=== PATIENT | female | born 1990 | race Caucasian/White ===

== ENCOUNTER 2018-02-14 11:06 | Inpatient (IN) ==
[2018-02-14] MEDS ORDERED: ONDANSETRON 4 MG/2 ML VIAL IV ONE (11:28)
[2018-02-14] MEDS ORDERED: LACTATED RINGERS 1,000 ML IV ONE (11:28)
--- NOTE | 2018-02-14 11:31 | Emergency Department Note ---
Abdominal Pain HPI - General Chief Complaint: Abdominal Pain Stated Complaint: R upper quad pain, known gall-stones Time Seen by Provider: 02/14/18 11:20 Source: patient Mode of arrival: ambulatory - History of Present Illness HPI Narrative: This patient has known gallstones and has been having gallbladder pain for several months. She had an ultrasound in [place] a month ago but could not get the results. She said she vomited 14 times yesterday and feels nauseated today with right upper quadrant pain persisting. - Related Data Home Medications Medication Instructions Recorded Confirmed No Known Home Meds [No Known Home 02/14/18 02/14/18 Meds] Allergies Allergy/AdvReac Type Severity Reaction Status Date / Time metformin Allergy Anaphylaxis Verified 02/14/18 11:11 Review of Systems All systems ED: reviewed and negative except as stated. Abdominal Pain PMH - Past Medical History Medical history: Reports: no medical history - Social History Smoking status: Never smoker Physical Exam Limitations: no limitations General appearance: alert Head: atraumatic Eye: Present: normal appearance ENT: normal exam Neck: Present: normal inspection Chest: Present: normal inspection Respiratory: Present: normal lung sounds bilaterally Cardiovascular: Present: regular rate, normal rhythm, normal heart sounds Abdominal: Present: soft, tenderness. Absent: distention, guarding, rebound, rigidity Abdominal tenderness: Present: RUQ Neurological: Present: alert Psychiatric: Present: normal affect, normal mood Skin: Present: warm, dry, intact Course Vital Signs Temperature 97.9 F 02/14/18 11:07 Pulse Rate 93 H 02/14/18 11:07 Respiratory Rate 16 02/14/18 11:07 Blood Pressure 134/88 02/14/18 11:07 Pulse Oximetry (%) 98 02/14/18 11:07 Temperature 97.9 F 02/14/18 11:07 Pulse Rate 73 02/14/18 12:46 Respiratory Rate 16 02/14/18 11:07 Blood Pressure 105/69 02/14/18 12:46 Pulse Oximetry (%) 97 02/14/18 12:46 Abdominal Pain - [facility] Narrative Medical decision making narrative: This patient has gallstones with a slightly dilated common bile duct. Lab work actually looks good though. Dr. Saeed a surgeon will come in and see her for admission. - Lab Data Lab results reviewed: Yes I reviewed the patient's lab results. Result diagrams: 02/14/18 11:43 02/14/18 11:43 Lab Results 02/14/18 02/14/18 02/14/18 Range/Units 11:26 11:43 11:43 WBC 7.3 (4.5-11.0) K/mcL RBC 4.42 (4.00-5.20) M/mcL Hgb 12.8 (12.0-15.0) g/dL Hct 37.9 (36.0-48.0) % MCV 85.8 (80.0-100.0) fL MCH 28.9 (26.0-34.0) pg MCHC 33.7 (31.0-36.0) g/dL RDW 13.0 (11.5-14.5) % Plt Count 231 (140-440) K/mcL MPV 9.3 (7.4-10.4) fL Gran % 61.4 (38.0-78.0) % Lymph % (Auto) 32.0 (15.5-49.0) % Vernon % (Auto) 5.3 (1.0-12.0) % Eos % (Auto) 0.8 (0.0-7.0) % Baso % (Auto) 0.5 (0.0-2.0) % Gran # 4.5 (1.8-8.0) K/mcL Lymph # (Auto) 2.3 (1.5-4.8) K/mcL Vernon # (Auto) 0.4 (0.1-0.9) K/mcL Eos # (Auto) 0.1 (0.0-0.7) K/mcL Baso # (Auto) 0 (0.0-0.3) K/mcL Sodium 139 (133-145) mmol/L Potassium 3.9 (3.3-5.1) mmol/L Chloride 103 (96-108) mmol/L Carbon Dioxide 24 (22-30) mmol/L Anion Gap 12.0 (8-16) BUN 13 (6-20) mg/dl Creatinine 0.7 (0.6-1.1) mg/dl GFR Calculation 117 Glucose 188 H (70-105) mg/dL Calcium 9.1 (8.6-10.4) mg/dl Total Bilirubin 0.5 (0.0-1.0) mg/dL AST 15 (0-37) U/l ALT 19 (0-40) U/l Alkaline Phosphatase 64 (39-117) U/L Total Protein 7.3 (5.9-8.4) gm/dL Albumin 3.5 (3.2-5.2) gm/dL Globulin 3.8 H (2.2-3.7) gm/dL Albumin/Globulin Ratio 0.9 L (1.0-2.3) Lipase 25 (7-60) U/L Urine Color Yellow Urine Appearance Clear Urine pH 7.0 (5.0-9.0) Ur Specific Preston 1.021 (1.000-1.035) Urine Protein Neg (NEG) mg/dL Urine Glucose (UA) Negative (NEG) mg/dL Urine Ketones Neg (NEG) mg/dL Urine Occult Blood Neg (<0.03) mg/dL Urine Nitrate Neg (NEG) Urine Bilirubin Neg (NEG) mg/dL Urine Urobilinogen Neg (NEG) mg/dL Ur Leukocyte Esterase 25 A (NEG) /uL Urine RBC 1 (0-1) /hpf Urine WBC 3 (0-4) /hpf Ur Squamous Epith Cells 4 (0-4) /hpf Urine Bacteria 0 (0) /hpf Urine Mucus Few (0) /hpf Ur Culture Indicated? No - Radiology Data Radiology results reviewed: Yes I reviewed the patient's radiology results. Disposition Pt seen by REVIEW APPRAISER/PA only: No Clinical Impression: Cholecystitis Disposition: Xfer As Inpt ([facility]) Condition: Good Referrals: No,PCP [Primary Care Provider] - Time of Disposition: 13:14
[2018-02-14 12:45] LABS: Basophils # (Auto) 0 K/mcL (0.0-0.3); Basophils % (Auto) 0.5 % (0.0-2.0); Eosinophils # (Auto) 0.1 K/mcL (0.0-0.7); Eosinophils % (Auto) 0.8 % (0.0-7.0); Granulocytes % (Auto) 61.4 % (38.0-78.0); Lymphocytes # (Auto) 2.3 K/mcL (1.5-4.8); Mean Cell Volume 85.8 fL (80.0-100.0); Mean Corpuscular HGB Conc 33.7 g/dL (31.0-36.0); Mean Corpuscular Hemoglobin 28.9 pg (26.0-34.0); Monocytes # (Auto) 0.4 K/mcL (0.1-0.9); Monocytes % (Auto) 5.3 % (1.0-12.0); Platelet Count 231 K/mcL (140-440); RBC 4.42 M/mcL (4.00-5.20)
[2018-02-14 12:49] LABS: Appearance,Urine CLEAR; Bacteria,Urine 0 /hpf (0); Bilirubin,Urine NEG (NEG); Color,Urine YELLOW; Glucose,Urine (UA) NEGATIVE (NEG); Leukocyte Esterase,Urine 25 /uL (NEG); Mucus,Urine FEW /hpf (0); Protein,Urine NEG (NEG); Specific Gravity,Urine 1.021 (1.000-1.035); Urine Blood NEG mg/dL (<0.03); Urine RBC 1 /hpf (0-1); Urine Squamous Epithelial Cell 4 /hpf (0-4); Urine WBC 3 /hpf (0-4); Urobilinogen,Urine NEG (NEG)
[2018-02-14 13:00] LABS: ALT/SGPT 19 U/l (0-40); Albumin 3.5 gm/dL (3.2-5.2); Albumin/Globulin Ratio 0.9 (1.0-2.3); Alkaline Phosphatase 64 U/L (39-117); Blood Urea Nitrogen 13 mg/dl (6-20); Lipase 25 U/L (7-60)
[2018-02-14] MEDS ORDERED: LACTATED RINGERS 1,000 ML IV SCH (16:18)
[2018-02-14] MEDS ORDERED: ONDANSETRON 4 MG/2 ML VIAL IV PRN (16:18)
--- NOTE | 2018-02-14 17:51 | Ultrasound Report ---
CLINICAL INFORMATION: Right upper quadrant pain COMPARISON: None. FINDINGS: There are multiple stones within the gallbladder fundus and the gallbladder is mildly enlarged. Gallbladder wall is normal thickness - 2 mm and there is no focal tenderness. Common bile duct is mildly dilated - 9 mm. The distal CBD is not visualized - no ductal stone identified. The liver is hyperechoic and slightly enlarged vertical dimension 16 cm mid clavicular line. No focal hepatic lesions. Pancreas is normal. No free fluid IMPRESSION: 1. Cholelithiasis with enlargement of the gallbladder which could indicate early cholecystitis 2. 3. Mild dilatation of common bile duct potentially indicating choledocholithiasis. The distal CBD is not visualized. 4. Hyperechoic mildly enlarged liver compatible with fatty change Interpreted and Authenticated by: Joseluis Hill 02/14/18
[2018-02-14] MEDS ORDERED: ONDANSETRON 4 MG/2 ML VIAL ONE (18:46)
[2018-02-14] MEDS: ACETAMINOPHEN 1,000 MG/100 ML BOTTLE IV PRN (18:47)
[2018-02-14] MEDS: 0.9 % SODIUM CHLORIDE 1,000 ML IV SCH (19:00)
--- NOTE | 2018-02-14 19:10 | Consultation ---
DATE OF CONSULTATION: 02/14/2018 CHIEF COMPLAINT: Ms. Rodriguez is seen in consultation at the request of Dr. Longo in the ER for upper abdominal pain and cholelithiasis. HISTORY OF PRESENT ILLNESS: Ms. Rodriguez is a 27-year-old woman, who presents to emergency department with complaints of upper abdominal pain that has been ongoing for approximately 3 years. She states that her first episode was 3 years ago at which time she was evaluated and was told she had stones in her gallbladder. That pain resolved, and the subsequent year, she had several episodes of recurrent upper abdominal pain. Now, she reports that she has daily attacks of pain for approximately 3 months with a baseline 8 in her upper abdomen. Her pain is not necessarily associated with eating and can come out of the blue when she is doing nothing. She describes the pain as a sharp shooting pain in her right upper quadrant that wraps into her back. Her last meal was earlier today at which time she ate half a breakfast burrito on the way to the hospital. Her pain was not severe today, though yesterday she did have severe pain with episodes of nausea and vomiting. Today, she came into the hospital because of the recurrent and persistent attacks and at the urging of her family to get further evaluated. PAST MEDICAL HISTORY: Significant for polycystic ovary disease, history of heavy bleeding with irregular menses with a blood transfusion 2 years ago. She reports no prior abdominal surgery. Denies any history of asthma, diabetes mellitus, or hypertension. REVIEW OF SYSTEMS: CONSTITUTIONAL: Denies fevers or chills. CARDIOVASCULAR: Denies chest pain or pressure. PULMONARY: No new cough or production of sputum. HEMATOLOGIC: History of blood transfusion due to anemia from heavy bleeding from her menses 2 years ago. No transfusion since. Denies history of DVT or PE. FAMILY HISTORY: No family history of myocardial infarction prior to age 50. She reports no family history of anesthetic reactions. There is a family history of breast cancer in her paternal grandmother. ALLERGIES: SHE REPORTS AN ALLERGY TO METFORMIN. MEDICATIONS: The patient reports no home medications. SOCIAL HISTORY: Denies tobacco use. Reports occasional alcohol use approximately 1 drink every 2 weeks. Denies any recreational drug use. PHYSICAL EXAMINATION: VITAL SIGNS: Blood pressure 116/77, pulse 90-86, O2 saturations 97% on room air. GENERAL APPEARANCE: Ms. Rodriguez is a well-developed, obese woman who appears tired and in pain. HEENT: Head is normocephalic. Sclerae are white. CHEST: Breath sounds are clear bilaterally. No rales, wheezes, heard. No use of accessory respiratory musculature. CARDIOVASCULAR: Reveals regular rhythm and rate. ABDOMEN: Obese, soft. There is tenderness on palpation of the right upper abdomen just below the rib cage. No masses palpated though this can be difficult to fully appreciate due to body habitus. No tenderness noted on palpation of other areas of the abdomen. EXTREMITIES: Warm with DP pulses palpable bilaterally. No pedal edema. LABS AND STUDIES: CBC drawn in the Emergency Department shows a normal white blood cell count of 7.3 with no left shift, hemoglobin is 12.8, hematocrit 37.9, platelets 231. Serum chemistry shows sodium of 139, potassium 3.9, chloride 103, CO2 of 24, BUN 13, creatinine 0.7, glucose 188, total bilirubin 0.5, AST 15, ALT 19, alkaline phosphatase 64, albumin 3.5, lipase is normal at 25. Urinalysis is negative for nitrites. There is a small amount of leukocyte esterase, no bacteria seen. Culture report not indicated. Urine hCG was negative. The patient underwent ultrasound imaging in the Emergency Department which shows a distended gallbladder with cholelithiasis. There is no thickening of the gallbladder wall. The common bile duct was noted to be dilated at 8.4 mm distally. Goldberg sign was absent on ultrasound. ASSESSMENT AND PLAN: Chronic calculus cholecystitis. I discussed the findings on imaging with the patient and the nature of this diagnosis using drawings to illustrate the anatomy. Recommendation of cholecystectomy was discussed along with alternative options of continued observation, although it seems the patient has been undergoing the symptoms for quite some time and observation has not resulted in any improvement. We reviewed the risks and benefits of surgery. Risks include, but are not limited to bleeding, infection, injury to the common bile duct, injury to other organs, bile leak, risks of general anesthesia, and possible need for conversion to an open procedure from a laparoscopic one. I also explained to the patient that there was a finding of dilation of the common bile duct in the distal portion. There was no clear evidence of stone. When I spoke with the wheelage clerk and labs did not suggest any obstruction at this time, it is possible, however, that this finding could result in need for further procedures pending perioperative findings. The patient verbalized understanding of her options of management and the risks of surgery and would like to proceed. She will be admitted and hydrated with plans for proceeding with cholecystectomy within the near future. RC:jose manuel Job ID: [id number] Doc ID: [id number] Samantha Saeed MD
[2018-02-14] MEDS: PIPERACILLIN SODIUM/TAZOBACTAM 3.375 GM in DEXTROSE 5% IN WATER 50 ML IV SCH (19:38)
[2018-02-14] MEDS ORDERED: PANTOPRAZOLE 40 MG VIAL IV ONE (19:55)
[2018-02-14] MEDS: PANTOPRAZOLE 40 MG VIAL IV SCH (20:06)
[2018-02-14] MEDS: HYDROmorphone 2 MG/ML VIAL IV PRN (21:11)
[2018-02-15] MEDS: PIPERACILLIN SODIUM/TAZOBACTAM 3.375 GM in DEXTROSE 5% IN WATER 50 ML IV SCH ×5 (01:16→22:13)
[2018-02-15] MEDS: HYDROmorphone 2 MG/ML VIAL IV PRN ×2 (02:04→09:26)
[2018-02-15] MEDS: ACETAMINOPHEN 1,000 MG/100 ML BOTTLE IV PRN (02:08)
[2018-02-15] MEDS: 0.9 % SODIUM CHLORIDE 1,000 ML IV SCH ×3 (04:31→15:45)
[2018-02-15 05:01] LABS: Basophils # (Auto) 0 K/mcL (0.0-0.3); Basophils % (Auto) 0.5 % (0.0-2.0); Eosinophils # (Auto) 0 K/mcL (0.0-0.7); Eosinophils % (Auto) 0.6 % (0.0-7.0); Granulocytes % (Auto) 54.6 % (38.0-78.0); Lymphocytes # (Auto) 2.9 K/mcL (1.5-4.8); Lymphocytes % (Auto) 37.3 % (15.5-49.0); Mean Cell Volume 87.3 fL (80.0-100.0); Mean Corpuscular HGB Conc 33.6 g/dL (31.0-36.0); Mean Corpuscular Hemoglobin 29.3 pg (26.0-34.0); Monocytes # (Auto) 0.5 K/mcL (0.1-0.9); Platelet Count 227 K/mcL (140-440); RBC 4.01 M/mcL (4.00-5.20); Red Cell Distribution Width 12.9 % (11.5-14.5)
[2018-02-15 05:46] LABS: ALT/SGPT 17 U/l (0-40); Albumin 3.3 gm/dL (3.2-5.2); Albumin/Globulin Ratio 1.1 (1.0-2.3); Alkaline Phosphatase 58 U/L (39-117); Bilirubin,Direct < 0.2 mg/dL (0.0-0.3); Blood Urea Nitrogen 10 mg/dl (6-20); Gamma Glutamyl Transpeptidase 38 U/L (5-36); Uric Acid 4.4 mg/dL (2.5-8.0)
[2018-02-15] MEDS: PANTOPRAZOLE 40 MG VIAL IV SCH (07:42)
--- NOTE | 2018-02-15 11:37 | General Surgery Progress Note ---
Subjective Patient reports: still having pain, no flatus, no bowel movement, afebrile Narrative: Note initiated : 02/15/18 at 11:35 am Service Date, if different from initiated Date: [] Patient: Ratna Rodriguez 27 y/o F admitted on 02/14/18 for R Upper Quad Pain, Known GallStones/Cholelithiasis. Chief Complaint: [patient continues to have abdominal pain. She has nausea but has not had vomiting since yesterday. Discussed with her the need to proceed with cholecystectomy and I counseled her concerning the procedure.. It will be done later today.] Objective Temp Pulse Resp BP Pulse Ox 98.3 F 61 18 114/76 95 02/15/18 10:48 02/15/18 04:22 02/15/18 10:48 02/15/18 10:48 02/15/18 10:48 - Additional Data Intake & Output - Last 24 hours: Intake & Output 02/13/18 02/14/18 02/15/18 02/16/18 05:59 05:59 05:59 05:59 Intake Total 1590 / 1590 Output Total 1050 / 1050 Balance 540 / 540 Weight 266 lb - General physical appearance moderate distress, moderate pain, obese - Eyes PERRL, normal ocular movement (Rehabilitation Specialist) - ENT normal pinna ( listed weight weight), normal nares, normal mucosa, no hearing loss, no congestion - Neck no masses ( at L1 and S1), no bruits, trachea midline, no lymphadectomy, no venous distension - Respiratory normal expansion, normal respiratory effort, clear to percussion, clear to auscultation - Cardiovascular Cardiovascular exam: Present: normal rate and rhythm (aaaaaaaaaaaaaaaaaa wire), RRR, +S1, +S2. Absent: JVD, tachycardia - Abdomen tender ( right upper quadrant tenderness with guarding; good active bowel sounds ;) - Rectum normal sphincter tone, no hemorrhoids, no tenderness, no masses, no bleeding - Integumentary no rash, no growths, no abnormal pigmentation - Neurologic normal coordination, normal sensation - Musculoskeletal normal gait, normal posture - Psychiatric oriented to time, oriented to person, oriented to place, speech is normal, memory intact - Labs 02/15/18 04:05 02/15/18 04:05 Diabetes panel 02/14/18 02/15/18 Range/Units 11:43 04:05 Sodium 139 139 (133-145) mmol/L Potassium 3.9 4.3 (3.3-5.1) mmol/L Chloride 103 104 (96-108) mmol/L Carbon Dioxide 24 25 (22-30) mmol/L BUN 13 10 (6-20) mg/dl Creatinine 0.7 0.7 (0.6-1.1) mg/dl Glucose 188 H 120 H (70-105) mg/dL Calcium 9.1 8.5 L (8.6-10.4) mg/dl AST 15 15 (0-37) U/l ALT 19 17 (0-40) U/l Alkaline Phosphatase 64 58 (39-117) U/L Total Protein 7.3 6.4 (5.9-8.4) gm/dL Albumin 3.5 3.3 (3.2-5.2) gm/dL Triglycerides 116 (<150) mg/dl Calcium panel 02/14/18 02/15/18 Range/Units 11:43 04:05 Calcium 9.1 8.5 L (8.6-10.4) mg/dl Phosphorus 5.1 H (2.7-4.5) mg/dL Albumin 3.5 3.3 (3.2-5.2) gm/dL Pituitary panel 02/14/18 02/15/18 Range/Units 11:43 04:05 Sodium 139 139 (133-145) mmol/L Potassium 3.9 4.3 (3.3-5.1) mmol/L Chloride 103 104 (96-108) mmol/L Carbon Dioxide 24 25 (22-30) mmol/L BUN 13 10 (6-20) mg/dl Creatinine 0.7 0.7 (0.6-1.1) mg/dl Glucose 188 H 120 H (70-105) mg/dL Calcium 9.1 8.5 L (8.6-10.4) mg/dl Adrenal panel 02/14/18 02/15/18 Range/Units 11:43 04:05 Sodium 139 139 (133-145) mmol/L Potassium 3.9 4.3 (3.3-5.1) mmol/L Chloride 103 104 (96-108) mmol/L Carbon Dioxide 24 25 (22-30) mmol/L BUN 13 10 (6-20) mg/dl Creatinine 0.7 0.7 (0.6-1.1) mg/dl Glucose 188 H 120 H (70-105) mg/dL Calcium 9.1 8.5 L (8.6-10.4) mg/dl Total Bilirubin 0.5 0.5 (0.0-1.0) mg/dL AST 15 15 (0-37) U/l ALT 19 17 (0-40) U/l Alkaline Phosphatase 64 58 (39-117) U/L Total Protein 7.3 6.4 (5.9-8.4) gm/dL Albumin 3.5 3.3 (3.2-5.2) gm/dL Assessment and Plan (1) Cholelithiasis with acute cholecystitis without biliary obstruction Status: Acute Assessment and plan: Patient counseled for laparoscopic cholecystectomy Current Visit: Yes - Time Spent With Patient Total time spent is greater than 50% in coordination of care (as documented) at patient's floor/unit and/or counseling patient:
[2018-02-15] MEDS ORDERED: LIDOCAINE HCL/PF 100 MG/5 ML SYRINGE IV ONE (12:30)
[2018-02-15] MEDS ORDERED: ROCURONIUM 10 MG/ML ML IV ONE (12:30)
[2018-02-15] MEDS ORDERED: NEOSTIGMINE 1 MG/ML VIAL IV ONE (12:30)
[2018-02-15] MEDS ORDERED: KETAMINE 100 MG/ML ML IV ONE (12:30)
[2018-02-15] MEDS ORDERED: GLYCOPYRROLATE 0.2 MG/ML VIAL IV ONE (12:30)
[2018-02-15] MEDS ORDERED: ONDANSETRON 4 MG/2 ML VIAL IV ONE (12:30)
[2018-02-15] MEDS ORDERED: PROPOFOL 200 MG/20 ML VIAL IV ONE (12:30)
[2018-02-15] MEDS ORDERED: fentaNYL 100 MCG/2 ML VIAL IV ONE (12:30)
[2018-02-15] MEDS ORDERED: MIDAZOLAM 2 MG/2 ML VIAL IV ONE (12:30)
[2018-02-15] MEDS ORDERED: MEPERIDINE 25 MG/ML SYRINGE IV PRN (13:18)
[2018-02-15] MEDS ORDERED: KETOROLAC 30 MG/ML VIAL IV PRN (13:18)
[2018-02-15] MEDS ORDERED: PROMETHAZINE 25 MG/ML VIAL IM PRN (13:18)
[2018-02-15] MEDS ORDERED: PROMETHAZINE 25 MG/ML VIAL IV PRN (13:18)
[2018-02-15] MEDS ORDERED: IPRATROPIUM/ALBUTEROL 3 ML AMPUL.NEB NEB PRN (13:18)
[2018-02-15] MEDS ORDERED: MEPERIDINE 50 MG/ML INJECTION IM PRN (13:18)
--- NOTE | 2018-02-15 13:56 | Brief Operative Note ---
Date of procedure: 02/15/18 Pre-op diagnosis: acute cholecystitis with cholelithiasis Post-op diagnosis: other (acute cholecystitis with cholelithiasis) Procedure: laparoscopic cholecystectomy Grafts/Implants: No (shade drain x1) Anesthesia: GETA Findings: acute severe inflammation of gallbladder with cystic duct obstruction Complications: none Surgeon: Belkis Kimball Specimens Removed/Pathology: other (gallbladder) Condition: stable Disposition: PACU
[2018-02-15] MEDS: fentaNYL 100 MCG/2 ML VIAL IV PRN ×4 (14:05→14:17)
--- NOTE | 2018-02-15 14:37 | Operative Note ---
DATE OF OPERATION: 02/15/2018 PREOPERATIVE DIAGNOSIS: Acute cholecystitis with cholelithiasis. POSTOPERATIVE DIAGNOSIS: Acute cholecystitis with cholelithiasis. PROCEDURE: Laparoscopic cholecystectomy. SURGEON: Belkis Kimball M.D. FINDINGS: Acute severe inflammation of the gallbladder with cystic duct obstruction and clear bile. DESCRIPTION OF PROCEDURE: Under general anesthesia, the patient's abdomen was prepped and draped in a sterile field. A time-out procedure was carried out as per protocol. Supraumbilical incision was made and Veress needle was inserted uneventfully. Abdomen was insufflated with 3 liters of CO2. A 12 mm port was placed. Laparoscope was placed. The gallbladder was visualized. It was acutely inflamed. Under videoscopic guidance, a 12 mm port and two 5 mm ports were placed in the right subcostal area. The gallbladder was decompressed with a Weck needle. The gallbladder was grasped and positioned. Cystic duct and cystic artery branches were dissected. The cystic duct was dissected followed back to the gallbladder where it was clipped with five clips and divided. Cystic artery branches were dissected onto the wall of the gallbladder, clipped with 4 clips each and divided. The gallbladder was then from the infrahepatic bed using electrocautery. There was a modest amount of bleeding. A 7 Faroese Zander drain was placed in the subhepatic space and brought out through the most lateral incision. More irrigation was carried out. CO2 was allowed to escape from the abdomen and the ports were removed. Fascia at the umbilicus was closed with interrupted 0 Vicryl. Skin incisions were closed with christine. The patient tolerated the procedure well. Dressings were placed. The drain was secured with 2-0 nylon. The patient was awakened from anesthesia uneventfully, transferred to a bed and taken to the postanesthetic care unit in stable, satisfactory condition. LCS:ashish Job ID: [id number] Doc ID: [id number] Belkis Kimball M.D.
[2018-02-15] MEDS ORDERED: HYDROmorphone 2 MG/ML VIAL IV PRN (14:46)
[2018-02-15] MEDS ORDERED: ACETAMINOPHEN 1,000 MG/100 ML BOTTLE IV PRN (14:46)
[2018-02-15] MEDS ORDERED: ONDANSETRON 4 MG/2 ML VIAL IV PRN (14:46)
[2018-02-16] MEDS: 0.9 % SODIUM CHLORIDE 1,000 ML IV SCH ×2 (03:01→11:18)
[2018-02-16 05:42] LABS: Basophils # (Auto) 0 K/mcL (0.0-0.3); Basophils % (Auto) 0.1 % (0.0-2.0); Eosinophils # (Auto) 0 K/mcL (0.0-0.7); Eosinophils % (Auto) 0 % (0.0-7.0); Granulocytes % (Auto) 83.4 % (38.0-78.0); Lymphocytes # (Auto) 1.3 K/mcL (1.5-4.8); Lymphocytes % (Auto) 12.3 % (15.5-49.0); Mean Cell Volume 86.7 fL (80.0-100.0); Mean Corpuscular HGB Conc 33.7 g/dL (31.0-36.0); Mean Corpuscular Hemoglobin 29.2 pg (26.0-34.0); Monocytes # (Auto) 0.4 K/mcL (0.1-0.9); Monocytes % (Auto) 4.2 % (1.0-12.0); Platelet Count 244 K/mcL (140-440); RBC 4.04 M/mcL (4.00-5.20); Red Cell Distribution Width 12.8 % (11.5-14.5)
[2018-02-16] MEDS: PIPERACILLIN SODIUM/TAZOBACTAM 3.375 GM in DEXTROSE 5% IN WATER 50 ML IV SCH (05:51)
[2018-02-16 05:52] LABS: ALT/SGPT 29 U/l (0-40); Albumin 3.3 gm/dL (3.2-5.2); Albumin/Globulin Ratio 0.9 (1.0-2.3); Alkaline Phosphatase 55 U/L (39-117); Bilirubin,Direct < 0.2 mg/dL (0.0-0.3); Blood Urea Nitrogen 7 mg/dl (6-20); Gamma Glutamyl Transpeptidase 53 U/L (5-36); Uric Acid 3.9 mg/dL (2.5-8.0)
[2018-02-16] MEDS ORDERED: PANTOPRAZOLE 40 MG VIAL IV SCH (07:30)
--- NOTE | 2018-02-16 11:14 | Discharge Summary ---
Providers - Providers Patient information: Note initiated : 02/16/18 at 11:12 am Service Date, if different from initiated Date: [] Patient: Ratna Rodriguez 27 y/o F admitted on 02/14/18 for R Upper Quad Pain, Known GallStones/Cholelithiasis. Chief Complaint: [] Date of admission: 02/14/18 Discharge date: 02/16/18 Attending physician: Belkis Kimball Hospitalization Hospital course: 27-year-old female admitted with recurrent abdominal pain with nausea and vomiting. She was noted to have cholecystitis and cholelithiasis. Patient underwent laparoscopic cholecystectomy on February 08. Patient has done well. Her enzymes are normal. She is tolerating regular diet. Patient is stable for discharge home. Discharge diagnosis: cholelithiasis with cholecystitis Reason for admission: gallstone disease Procedures: Laparoscopic cholecystectomy Complications: None Exam Temp Pulse Resp BP Pulse Ox 97.1 F 79 22 101/64 96 02/16/18 07:33 02/16/18 07:33 02/16/18 07:33 02/16/18 07:33 02/16/18 07:33 - General physical appearance well developed, well nourished, no distress - Eyes PERRL, normal ocular movement - ENT normal pinna, normal nares, normal mucosa, no hearing loss, no congestion - Head Head exam IM: Present: atraumatic, normocephalic - Neck no masses, no bruits, trachea midline, no lymphadectomy, no venous distension - Cardiovascular Cardiovascular exam IM: Present: normal rate and rhythm - Respiratory normal expansion, normal respiratory effort, clear to percussion, clear to auscultation - Abdomen Abdomen: Present: soft, tender (mild tenderness around the port sites;;; no abdominal distention), bowel sounds Hernia: Present: none - Integumentary Present: no rash, no growths, no abnormal pigmentation - Neurologic Present: normal coordination, normal sensation - Musculoskeletal Present: normal gait, normal posture - Psychiatric Present: oriented to time, oriented to person, oriented to place, speech is normal, memory intact Discharge Plan - Patient/Caregiver Discharge Instructions Activity: increase activity as tolerated Diet: Low Fat Additional Instructions: Patient states that she does not require pain medication - Follow up Plan Follow up with: No,PCP [Primary Care Provider] - Belkis Kimball MD [Physician] - Disposition: Home, Self-Care Prognosis: Good Rehab Potential: Good I certify that the patient requires SNF services.: No Overall status at discharge: patient is progressing back to baseline Pending Studies Diet Regular Diet Start ThuFeb 16 1106 Hydromorphone HCl (Dilaudid) 0.5 - 1 mg IV Q3HP PRN PRN Reason: PAIN LEVEL > 6 Last Admin: 02/15/18 20:35 Dose: 0.5 mg Sodium Chloride (Sodium Chloride 0.9%) 1,000 mls @ 100 mls/hr IV .Q10H [facility] Last Admin: 02/16/18 03:01 Dose: 100 mls/hr Infusion: 02/16/18 01:45 Dose: 100 mls/hr Admin: 02/15/18 15:45 Dose: 100 mls/hr Piperacillin Sod/Tazobactam (Sod 3.375 gm/ Dextrose) 50 mls @ 100 mls/hr IV Q8H [facility] Last Admin: 02/16/18 05:51 Dose: 100 mls/hr Infusion: 02/15/18 23:01 Dose: 0 mls/hr Admin: 02/15/18 22:13 Dose: 100 mls/hr Infusion: 02/15/18 16:20 Dose: 0 mls/hr Admin: 02/15/18 15:45 Dose: 100 mls/hr Pantoprazole Sodium (Protonix) 40 mg IV QAMAC [facility] Last Admin: 02/16/18 08:23 Dose: 40 mg Shift Summary 02/16/18 03:40 Shift Summary by Juany Sweeney Patient slept off and on this shift. Medicated with Dilaudid 0.5 mg x1 for pain 6-7/10 with good effect. Pain 5/10 refused pain medication at this time. Patient states, " It is only gas pain". Patient reported belching and passing flatus. No bowel movement yet. Three lap sites christine and tegaderm in place. TAMARA site with gauze dressing and tegaderm CDI. TAMARA drained 80 mls of sanguinous output. Patient ambulates to the bathroom with standby assist. Denies any nausea overnight. VSS. Initialized on 02/16/18 03:40 - END OF NOTE
--- NOTE | 2018-02-17 09:38 | Surgical Pathology Report ---
HISTOLOGY SPECIMEN MICROSCOPIC DIAGNOSIS GALLBLADDER, CHOLECYSTECTOMY: -- SUBACUTE AND CHRONIC CHOLECYSTITIS WITH CHOLELITHIASIS. (ACP:florentin) CLINICAL HISTORY Right upper quadrant pain; known gallstones/cholelithiasis. PROCEDURAL IMPRESSION Cholelithiasis with acute cholecystitis without biliary obstruction. GROSS DESCRIPTION Received in formalin labeled with the patient information, is a 9.0 x 4.0 x 1.8 cm pink to red-anna gallbladder. The serosal surface is smooth and glistening with a minimal amount of attached yellow-anna adipose tissue. There are multiple metal clips present including two on the cystic duct. The lumen contains pale yellow, watery fluid and multiple dark green to yellow multifaceted stones ranging in size from 1.0 to 1.3 cm in greatest dimension. The mucosa is white-anna to red-anna and trabecular. The wall is up to 0.2 cm thick. No gross lesions are identified. Outside Sales Account Manager sections submitted - one cassette. Additional sections are submitted in A2-A3. (STS:florentin) Electronically Signed by: José Whyte M.D.
== END 2018-02-16 14:15 | disposition home or self-care (01) | DRG 418 ==
LOC: ED 11:06 → MEDSUR 14:00
PROVIDERS: ADMIT Surgery; ATTEND Family Medicine Adult Medicine